=== PATIENT | female | born 1980 | race Caucasian/White ===

== ENCOUNTER 2016-10-09 05:30 | Inpatient (IN) | payer BC ==
[~2016-10-09] VITALS: Ht 167.6 cm; Wt 108.9 kg
[2016-10-09] VITALS (8 sets, daily range): BP systolic 116–148; BP diastolic 55–84
[~2016-10-09 05:30] MED LIST: CRANBERRY PLUS1 EACH PO; CRANBERRY450 M3 PO; ENDOCET 5-3251 EACH PO; FIBER GUMMIES1 EACH PO; FIBER GUMMIES2.5 GM PO; IBUPROFEN800 MG PO; MOTRIN800 MG PO; PERCOCET 5/31 TABLET PO; PRENATAL TABLE1 EACH PO; PROBIOTIC1 EAC1 PO
[2016-10-09] MEDS ORDERED: PERCOCET 5/31 TABLET PO (08:57)
[2016-10-09] MEDS ORDERED: MOTRIN800 MG PO (08:57)
[2016-10-10 03:43] VITALS: BP 100/49
[2016-10-10 07:25] LABS: EOSINOPHIL (%) 0.1 % (0-5); HEMATOCRIT 32.2 % (36.0-46.0); IMMATURE GRANULOCYTE (%) 0.3 % (0.0-0.7); INSTRUMENT ABS NEUTROPHIL CT 7.3 K/uL; LYMPHOCYTE COUNT 1.5 K/uL (1.0-2.8); MCH 28.6 PG (29.0-34.0); MCHC 31.1 G/DL (30.0-36.0); MEAN PLAT.VOLUME 11.9 uM^3 (9.5-12.4); MONOCYTE (%) 9.2 % (3-12); MONOCYTE COUNT 0.9 K/uL (0-0.8); NEUTROPHIL (%) 74.9 % (45-76); NEUTROPHIL COUNT 7.3 K/uL (1.8-6.4); PLATELET COUNT 124 K/uL (156-360); RBC DIS.WIDTH-SD 47.3 % (39-53); WHITE BLOOD COUNT 9.8 K/uL (4.1-10.2)
[2016-10-10 07:30] VITALS: BP 147/77
[2016-10-10 10:34] VITALS: BP 111/64
[2016-10-10 14:57] VITALS: BP 142/72
[2016-10-10 19:04] VITALS: BP 116/61
[2016-10-11 03:04] VITALS: BP 128/69
[2016-10-11 07:38] VITALS: BP 130/66
== END 2016-10-11 17:55 | disposition home or self-care (01) | DRG 766 ==
LOC: 2WEST 05:30 → 2SOUTH 08:30 → 2WEST 10-11 17:55
PROVIDERS: Obstetrics & Gynecology
PROC: 10D00Z1 Extraction of Products of Conception, Low, Open Approach (ICD-10-PCS; principal; 2016-10-09)
DX: O99.214 Obesity complicating childbirth (principal); Z37.0 Single live birth; O34.211 Maternal care for low transverse scar from previous cesarean delivery; E66.9 Obesity, unspecified; Z68.38 Body mass index [BMI] 38.0-38.9, adult; Z3A.39 39 weeks gestation of pregnancy; O99.824 Streptococcus B carrier state complicating childbirth; K58.8 Other irritable bowel syndrome; O26.893 Other specified pregnancy related conditions, third trimester; O36.63X0 Maternal care for excessive fetal growth, third trimester, not applicable or unspecified
CPT/HCPCS: 36415; 85025; 86900; 86901; J0690; J1100; J1885; J2274; J2405; J7120